=== PATIENT | female | born 1970 | race Hispanic/Latino ===

== ENCOUNTER 2018-05-31 21:46 | Emergency (ER) | payer SELFPAY ==
[~2018-05-31] VITALS: Ht 152.4 cm; Wt 76.7 kg
[2018-05-31] MEDS ORDERED: SODIUM CHLORIDE 0.9% 1000ML 1,000 ML IV SCH (22:15)
[2018-05-31] MEDS ORDERED: KETOROLAC TROMETHAMINE 30 MG/ML VIAL IV STA (22:37)
[2018-05-31] MEDS ORDERED: CLONIDINE HCL 0.1 MG TAB PO ONE (23:00)
== END 2018-06-01 00:05 | disposition home or self-care (01) ==
LOC: FSED 21:46
DX: R42 Dizziness and giddiness (principal); I10 Essential (primary) hypertension
CPT/HCPCS: 80053; 81003; 81025; 84484; 85025; 99284; J1885